=== PATIENT | female | born 1970 | race Two or more races ===

== ENCOUNTER 2021-11-07 07:51 | Outpatient (CLI) | payer OTHER | END 2021-11-07 07:56 | disposition home or self-care (01) | LOC: LAB 07:51 | PROVIDERS: ATTEND General Practice | DX: E88.81 Metabolic syndrome and other insulin resistance (principal); E03.9 Hypothyroidism, unspecified; E04.0 Nontoxic diffuse goiter; Z13.0 Encounter for screening for diseases of the blood and blood-forming organs and certain disorders involving the immune mechanism; E55.9 Vitamin D deficiency, unspecified; E66.9 Obesity, unspecified; R73.09 Other abnormal glucose; E78.00 Pure hypercholesterolemia, unspecified; F51.01 Primary insomnia; M19.90 Unspecified osteoarthritis, unspecified site; L58.0 Acute radiodermatitis; R89.1 Abnormal level of hormones in specimens from other organs, systems and tissues; N95.1 Menopausal and female climacteric states; R68.82 Decreased libido; E65 Localized adiposity; R94.5 Abnormal results of liver function studies; N39.0 Urinary tract infection, site not specified; N95.9 Unspecified menopausal and perimenopausal disorder ==

== ENCOUNTER 2022-01-05 08:03 | Outpatient (CLI) | payer OTHER | END 2022-01-05 08:07 | disposition home or self-care (01) | LOC: LAB 08:03 | PROVIDERS: ATTEND General Practice | DX: E88.81 Metabolic syndrome and other insulin resistance (principal); E03.9 Hypothyroidism, unspecified; E04.0 Nontoxic diffuse goiter; Z13.0 Encounter for screening for diseases of the blood and blood-forming organs and certain disorders involving the immune mechanism; E55.9 Vitamin D deficiency, unspecified; E66.9 Obesity, unspecified; R73.9 Hyperglycemia, unspecified; R78.0 Finding of alcohol in blood; F51.01 Primary insomnia; M19.90 Unspecified osteoarthritis, unspecified site; L68.0 Hirsutism; R89.1 Abnormal level of hormones in specimens from other organs, systems and tissues; N95.1 Menopausal and female climacteric states; R68.82 Decreased libido; E65 Localized adiposity; R94.5 Abnormal results of liver function studies; N39.0 Urinary tract infection, site not specified; N95.9 Unspecified menopausal and perimenopausal disorder ==

== ENCOUNTER → 2022-05-15 09:34 | Outpatient (CLI) | payer OTHER | END | disposition home or self-care (01) | LOC: LAB 09:34 | DX: E88.81 Metabolic syndrome and other insulin resistance (principal); E03.9 Hypothyroidism, unspecified; E04.0 Nontoxic diffuse goiter; Z13.0 Encounter for screening for diseases of the blood and blood-forming organs and certain disorders involving the immune mechanism; E55.9 Vitamin D deficiency, unspecified; E66.9 Obesity, unspecified; R73.09 Other abnormal glucose; E78.00 Pure hypercholesterolemia, unspecified; F51.01 Primary insomnia; E65 Localized adiposity; N95.9 Unspecified menopausal and perimenopausal disorder; N39.0 Urinary tract infection, site not specified; M19.90 Unspecified osteoarthritis, unspecified site ==

== ENCOUNTER 2022-07-10 08:26 | Outpatient (CLI) | payer OTHER | END 2022-07-10 08:27 | disposition home or self-care (01) | LOC: LAB 08:26 | DX: E03.8 Other specified hypothyroidism (principal) ==

== ENCOUNTER 2022-10-28 14:31 | Outpatient (CLI) | payer OTHER | END 2022-10-28 14:34 | disposition home or self-care (01) | LOC: MAMO-SONO 14:31 | DX: Z12.31 Encounter for screening mammogram for malignant neoplasm of breast (principal); N64.59 Other signs and symptoms in breast ==

== ENCOUNTER 2022-12-03 11:03 | Outpatient (CLI) | payer OTHER | END 2022-12-03 11:10 | disposition home or self-care (01) | LOC: SONOGRAMA 11:03 | PROVIDERS: ATTEND Internal Medicine Endocrinology, Diabetes & Metabolism | DX: E04.2 Nontoxic multinodular goiter (principal) ==

== ENCOUNTER → 2022-12-11 08:10 | Outpatient (CLI) | payer OTHER | END | disposition home or self-care (01) | LOC: LAB 08:10 | PROVIDERS: ATTEND Internal Medicine Endocrinology, Diabetes & Metabolism | DX: E04.2 Nontoxic multinodular goiter (principal); R94.6 Abnormal results of thyroid function studies; E16.2 Hypoglycemia, unspecified; E55.9 Vitamin D deficiency, unspecified; E06.3 Autoimmune thyroiditis ==

== ENCOUNTER → 2023-06-25 09:33 | Outpatient (CLI) | payer OTHER ==
[2023-06-25 11:04] LABS: URINE APPEARANCE Clear; URINE BILIRRUBIN Negative (NEGATIVE); URINE BLOOD Trace; URINE COLOR Yellow; URINE GLUCOSE Negative (NEGATIVE); URINE LEUKOCYTE Negative; URINE NITRATE Negative; URINE PROTEIN Negative (NEGATIVE); URINE UROBILINOGEN 0.2 E.U./dl
[2023-06-25 11:06] LABS: URINE EPITHELIAL CELLS 34.9 uL (0.0-38.8); URINE RBC 12.7 uL (0.0-20.8); URINE WBC 9.4 uL (0.0-23.2)
[2023-06-25 11:34] LABS: HEMOGLOBIN 12.7 g/dL (12.0-15.00); MEAN CELL VOLUME 92.3 fL (80.00-100.00); MEAN CORPUSCULAR HEMOGLOBIN 31.7 pg (27.00-32.0); MEAN CORPUSCULAR HGB CONC 34.3 g/dl (32.0-36.0); PLATELET COUNT 324 K/uL (150-450); RED BLOOD COUNT 4.01 M/uL (4.00-6.00); RED CELL DISTRIBUTION WIDTH 12.7 % (11.5-14.5)
[2023-06-25 11:35] LABS: ERYTHROCYTE SEDIMENTATION RATE 9 mm/hr
[2023-06-25 12:05] LABS: ALBUMIN 3.9 gm/dL (3.4-5.0); ALKALINE PHOSPHATASE 83 U/L (50-136); ALT/SGPT 24 U/L (12-78); ANION GAP 6 (10.0-20.0); AST/SGOT 18 U/L (15-37); BILIRUBIN TOTAL 0.72 mg/dL (0.3-1.2); BLOOD UREA NITROGEN 8 mg/dL (7-18); BUN CREA RATIO 12 (7.0-25.0); CALCIUM 8.7 mg/dL (8.5-10.1); CARBON DIOXIDE 28 mEq/L (21-32); CHLORIDE 109 mmol/L (98-107); CHOLESTEROL 217 mg/dL (0-200); CREATININE SERUM 0.68 mg/dL (0.55-1.02); FREE TRIODOTIRONINE 2.24 pg/ml (2.18-3.98); GFR 91.22; GLOBULINA 3.2 G/DL (2.4-3.5); GLUCOSE FASTING 80 mg/dL (65-100); HDL 107 mg/dl (40-60); LDL 97 mg/dl (0-130); OSMOLALITY SERUM 275 MOSM/KG (275-295); POTASSIUM 4.03 mEq/L (3.5-5.1); SODIUM 139 mmol/L (136-145); TOTAL PROTEIN 7.1 gm/dL (6.4-8.2); TRIGLYCERIDES 64 mg/dL (0-150); TSH 0.462 uIU/mL (0.358-3.74); VLDL 12 (0-39)
[2023-06-25 12:15] LABS: C-REACTIVE PROTEIN < 0.29 MG/DL (0.00-0.29)
== END | disposition home or self-care (01) ==
LOC: LAB 09:33
PROVIDERS: ATTEND General Practice
DX: E03.9 Hypothyroidism, unspecified (principal); E04.0 Nontoxic diffuse goiter; E55.9 Vitamin D deficiency, unspecified; E66.9 Obesity, unspecified; R73.09 Other abnormal glucose; E78.00 Pure hypercholesterolemia, unspecified; F51.01 Primary insomnia; M19.90 Unspecified osteoarthritis, unspecified site; L68.0 Hirsutism; R89.1 Abnormal level of hormones in specimens from other organs, systems and tissues; N95.1 Menopausal and female climacteric states; R68.82 Decreased libido; E65 Localized adiposity; R94.5 Abnormal results of liver function studies; N39.0 Urinary tract infection, site not specified; N95.9 Unspecified menopausal and perimenopausal disorder; Z13.0 Encounter for screening for diseases of the blood and blood-forming organs and certain disorders involving the immune mechanism

== ENCOUNTER → 2023-08-20 08:48 | Outpatient (CLI) | payer OTHER ==
[2023-08-20 09:39] LABS: HEMOGLOBIN 12.7 g/dL (12.0-15.00); MEAN CELL VOLUME 93.4 fL (80.00-100.00); MEAN CORPUSCULAR HEMOGLOBIN 31.2 pg (27.00-32.0); MEAN CORPUSCULAR HGB CONC 33.5 g/dl (32.0-36.0); PLATELET COUNT 357 K/uL (150-450); RED BLOOD COUNT 4.07 M/uL (4.00-6.00); RED CELL DISTRIBUTION WIDTH 13.2 % (11.5-14.5)
== END | disposition home or self-care (01) ==
LOC: LAB 08:48
PROVIDERS: ATTEND General Practice
DX: E03.9 Hypothyroidism, unspecified (principal); E04.0 Nontoxic diffuse goiter; Z13.0 Encounter for screening for diseases of the blood and blood-forming organs and certain disorders involving the immune mechanism; E55.9 Vitamin D deficiency, unspecified; E66.9 Obesity, unspecified; R73.09 Other abnormal glucose; F51.01 Primary insomnia; M19.90 Unspecified osteoarthritis, unspecified site; L68.0 Hirsutism; R89.1 Abnormal level of hormones in specimens from other organs, systems and tissues; R68.82 Decreased libido; E65 Localized adiposity; R94.5 Abnormal results of liver function studies; N95.9 Unspecified menopausal and perimenopausal disorder

== ENCOUNTER 2023-11-09 14:22 | Outpatient (CLI) | payer OTHER | END 2023-11-09 14:26 | disposition home or self-care (01) | LOC: MAMO-SONO 14:22 | DX: Z12.31 Encounter for screening mammogram for malignant neoplasm of breast (principal) ==

== ENCOUNTER 2023-11-12 10:40 | Outpatient (CLI) | payer OTHER ==
[2023-11-12 12:06] LABS: HEMATOCRIT 39.6 % (36.0-45.00); HEMOGLOBIN 13.5 g/dL (12.0-15.00); MEAN CELL VOLUME 92.5 fL (80.00-100.00); MEAN CORPUSCULAR HEMOGLOBIN 31.6 pg (27.00-32.0); MEAN CORPUSCULAR HGB CONC 34.2 g/dl (32.0-36.0); PLATELET COUNT 393 K/uL (150-450); RED BLOOD COUNT 4.28 M/uL (4.00-6.00); RED CELL DISTRIBUTION WIDTH 13.5 % (11.5-14.5)
[2023-11-12 12:49] LABS: ALBUMIN 4.3 gm/dL (3.4-5.0); BILIRUBIN TOTAL 0.66 mg/dL (0.3-1.2); CALCIUM 9.7 mg/dL (8.5-10.1); CREATININE SERUM 0.66 mg/dL (0.55-1.02); FREE TRIODOTIRONINE 2.37 pg/ml (2.18-3.98); GFR 94.42; GLOBULINA 4.1 G/DL (2.4-3.5); POTASSIUM 4.18 mEq/L (3.5-5.1); T4 FREE 0.94 NG/ML (0.76-1.46); TOTAL PROTEIN 8.4 gm/dL (6.4-8.2); TSH 0.659 uIU/mL (0.358-3.74)
[2023-11-15 09:07] LABS: ESTRADIOL SERUM 34.8 pg/mL (.)
== END 2023-11-12 10:46 | disposition home or self-care (01) ==
LOC: LAB 10:40
DX: E55.9 Vitamin D deficiency, unspecified (principal); Z13.1 Encounter for screening for diabetes mellitus; Z13.220 Encounter for screening for lipoid disorders; Z13.29 Encounter for screening for other suspected endocrine disorder; R68.89 Other general symptoms and signs; R79.89 Other specified abnormal findings of blood chemistry

== ENCOUNTER 2024-05-04 06:57 | Outpatient (CLI) | payer OTHER ==
[2024-05-04 09:18] LABS: FERRITIN 72.5 NG/ML (8-252); FREE TRIODOTIRONINE 2.59 pg/ml (2.18-3.98); T4 FREE 0.99 NG/ML (0.76-1.46); TSH 1.11 uIU/mL (0.358-3.74)
[2024-05-05 09:07] LABS: ANTI THYROID PEROXIDASE < 9 IU/mL (0-34); ESTRADIOL SERUM 40.3 pg/mL (.)
[2024-05-07 15:09] LABS: test free 0.9 pg/mL (0.0-4.2)
== END 2024-05-04 06:58 | disposition home or self-care (01) ==
LOC: LAB 06:57
DX: N95.1 Menopausal and female climacteric states (principal); Z13.1 Encounter for screening for diabetes mellitus; Z13.220 Encounter for screening for lipoid disorders; Z13.29 Encounter for screening for other suspected endocrine disorder; E55.9 Vitamin D deficiency, unspecified

== ENCOUNTER 2024-11-15 13:36 | Outpatient (CLI) | payer OTHER | END 2024-11-15 13:39 | disposition home or self-care (01) | LOC: MAMO-SONO 13:36 | DX: N64.4 Mastodynia (principal); Z12.39 Encounter for other screening for malignant neoplasm of breast ==

== ENCOUNTER 2024-11-19 07:30 | Outpatient (CLI) | payer OTHER ==
[2024-11-19 09:54] LABS: FREE TRIODOTIRONINE 2.41 pg/ml (2.18-3.98); T4 FREE 1.03 NG/ML (0.76-1.46); TSH 0.916 uIU/mL (0.358-3.74)
[2024-11-21 01:05] LABS: ESTRADIOL SERUM 36.8 pg/mL (.)
== END 2024-11-19 07:35 | disposition home or self-care (01) ==
LOC: LAB 07:30
DX: N95.1 Menopausal and female climacteric states (principal); Z13.1 Encounter for screening for diabetes mellitus; Z13.220 Encounter for screening for lipoid disorders; Z13.29 Encounter for screening for other suspected endocrine disorder; E55.9 Vitamin D deficiency, unspecified; E03.9 Hypothyroidism, unspecified

== ENCOUNTER 2025-01-14 07:57 | Outpatient (CLI) | payer OTHER ==
[2025-01-14 08:36] LABS: BASO % 1.2 % (0.1-1.2); EOS # 0.06 (0.04-0.54); EOS % 0.8 % (0.7-7.0); HEMATOCRIT 39.7 % (34.1-44.9); HEMOGLOBIN 12.9 g/dL (11.2-15.7); LYMPH # 0.86 (1.18-3.74); LYMPH % 11.9 % (19.3-53.1); MEAN CORPUSCULAR HEMOGLOBIN 31.2 pg (25.6-32.2); MONO # 0.63 (0.24-0.82); MONO % 8.7 % (4.7-12.5); NEUT # 5.59 (1.56-6.13); NEUT % 77.1 % (34.0-71.1); PLATELET COUNT 361 K/uL (163-369); RED BLOOD COUNT 4.14 M/uL (3.93-5.22); RED CELL DISTRIBUTION WIDTH 12.8 % (11.6-14.4)
[2025-01-14 08:44] LABS: PH,URINE 7.5 (5.0-8.0); URINE APPEARANCE Clear; URINE BILIRRUBIN Negative (NEGATIVE); URINE BLOOD Negative; URINE COLOR Yellow; URINE GLUCOSE Negative (NEGATIVE); URINE KETONE Negative (NEGATIVE); URINE LEUKOCYTE Negative; URINE NITRATE Negative; URINE PROTEIN Negative (NEGATIVE); URINE UROBILINOGEN 0.2 E.U./dl
[2025-01-14 08:46] LABS: URINE BACTERIA 134.6 uL (0.0-1933); URINE EPITHELIAL CELLS 6.6 uL (0.0-38.8); URINE RBC 23.1 uL (0.0-20.8); URINE WBC 3.6 uL (0.0-23.2)
[2025-01-14 09:47] LABS: ALBUMIN 3.8 gm/dL (3.4-5.0); BILIRUBIN TOTAL 0.55 mg/dL (0.3-1.2); CALCIUM 9.2 mg/dL (8.5-10.1); CHOL HDL RATIO 2.3 (0-5.0); CREATININE SERUM 0.6 mg/dL (0.55-1.02); GFR 104.98; GLOBULINA 3.5 G/DL (2.4-3.5); POTASSIUM 5.69 mEq/L (3.5-5.1); T4 FREE 0.94 NG/ML (0.76-1.46); TOTAL PROTEIN 7.3 gm/dL (6.4-8.2); TSH 0.762 uIU/mL (0.358-3.74)
== END 2025-01-14 07:58 | disposition home or self-care (01) ==
LOC: LAB 07:57
DX: E03.8 Other specified hypothyroidism (principal); E55.9 Vitamin D deficiency, unspecified; R73.03 Prediabetes; Z86.39 Personal history of other endocrine, nutritional and metabolic disease

== ENCOUNTER 2025-01-14 08:18 | Outpatient (CLI) | payer OTHER | END 2025-01-14 08:21 | disposition home or self-care (01) | LOC: SONOGRAMA 08:18 | PROVIDERS: ATTEND Internal Medicine Endocrinology, Diabetes & Metabolism | DX: E04.2 Nontoxic multinodular goiter (principal) ==

== ENCOUNTER 2025-04-27 07:12 | Outpatient (CLI) | payer OTHER ==
[2025-04-30 10:35] LABS: ESTRADIOL SERUM 45.5 pg/mL (.)
== END 2025-04-27 07:17 | disposition home or self-care (01) ==
LOC: LAB 07:12
DX: N95.1 Menopausal and female climacteric states (principal)